=== PATIENT | female | born 2000 | race Hispanic/Latino ===

== ENCOUNTER 2025-06-15 12:53 | Emergency (ER) | payer OTHER ==
[~2025-06-15] VITALS: Ht 162.6 cm; Wt 60.0 kg
[2025-06-15] MEDS ORDERED: TETRACAINE 0.5% AD (13:28)
[2025-06-15] MEDS ORDERED: GENTAMICIN SULFA5 ML AD (13:28)
[2025-06-15] MEDS ORDERED: AMOXICILLIN500 MG PO (13:28)
[2025-06-15 13:50] VITALS: BP 123/82
== END 2025-06-15 13:54 | disposition home or self-care (01) ==
LOC: ED 12:53
DX: B02.8 Zoster with other complications (principal); H67.1 Otitis media in diseases classified elsewhere, right ear
CPT/HCPCS: 99282